=== PATIENT | male | born 1940 | race Caucasian/White ===

== ENCOUNTER 2023-04-12 09:33 | Inpatient (IN) | payer MEDICARE, OTHER ==
[~2023-04-12] VITALS: Ht 180.3 cm; Wt 63.5 kg
[2023-04-12] MEDS ORDERED: IV NORMAL SALINE 500 ML BAG IV ONE (10:15)
[2023-04-12 10:21] LABS: BASOPHILS # (AUTO) 0.1 K/UL (0.0-0.2); BASOPHILS % (AUTO) 0.7 % (0.0-2.0); EOSINOPHILS % (AUTO) 0.3 % (0.0-7.0); HEMATOCRIT 22.6 % (36.7-47.1); LYMPHOCYTES # (AUTO) 1.2 K/uL (0.8-4.8); LYMPHOCYTES % (AUTO) 16.4 % (20.5-51.5); MEAN CORPUSCULAR HGB CONC 32 g/dL (32.5-36.3); MEAN CORPUSCULAR VOLUME 75.3 fL (73.0-96.2); MONOCYTES # (AUTO) 0.5 K/uL (0.1-1.30); MONOCYTES % (AUTO) 6.9 % (0.0-11.0); NEUTROPHILS # (AUTO) 5.7 K/uL (1.8-8.9); NEUTROPHILS % (AUTO) 75.7 % (38.5-71.5); PLATELET COUNT (AUTO) 400 K/uL (152-348); RED CELL DISTRIBUTION WIDTH 17.6 % (12.1-16.2); WHITE BLOOD COUNT (AUTO) 7.6 K/uL (3.6-10.2)
[2023-04-12] MEDS ORDERED: ALPR0.5T8 PO (10:23)
[2023-04-12] MEDS ORDERED: MIDO2.5T PO (10:23)
[2023-04-12] MEDS ORDERED: ROSU20TA32 MT (10:23)
[2023-04-12] MEDS ORDERED: CALC500T53 PO (10:23)
[2023-04-12] MEDS ORDERED: CLOP75TA33 PO (10:23)
[2023-04-12] MEDS ORDERED: VENL75TA74 PO (10:23)
[2023-04-12] MEDS ORDERED: DOCU250C14 PO (10:23)
[2023-04-12] MEDS ORDERED: METF-440 MT (10:23)
[2023-04-12] MEDS ORDERED: TRAZ150T75 PO (10:23)
[2023-04-12] MEDS ORDERED: ASPI-1420 PO (10:23)
[2023-04-12] MEDS ORDERED: FLUD0.1T PO (10:23)
[2023-04-12 10:33] LABS: DIFFERENTIAL COMMENT 1
[2023-04-12 10:35] LABS: CALCIUM 8.6 mg/dL (8.5-10.1); CARBON DIOXIDE 25 mmol/L (21-32); CHLORIDE 101 mmol/L (98-107); CREATININE 1.5 mg/dL (0.6-1.3); GLUCOSE 201 mg/dL (74-106); HEMOGLOBIN 7.2 g/dL (12.5-16.3); POTASSIUM 4.8 mmol/L (3.5-5.1); SODIUM SERUM 136 mmol/L (136-145); UREA NITROGEN, BLOOD 33 mg/dL (7-18)
[2023-04-12 10:40] LABS: IRON, SERUM 25 ug/dL (50-175)
[2023-04-12 10:42] LABS: ALBUMIN 3.7 g/dL (3.4-5.0); BILIRUBIN,DIRECT 0.1 mg/dL (0.0-0.2); BILIRUBIN,TOTAL 0.2 mg/dL (0.2-1.0); TOTAL PROTEIN, SERUM 7.4 g/dL (6.4-8.2)
[2023-04-12] MEDS ORDERED: REMEDY ESSENTIAL ZINC PASTE 113 GM TP PRN (11:45)
[2023-04-12] MEDS ORDERED: ACETAMINOPHEN 325 MG TABLET PO PRN (11:45)
[2023-04-12] MEDS ORDERED: ONDANSETRON 4 MG/2 ML VIAL IV PRN (11:45)
[2023-04-12] MEDS ORDERED: SOD FERRIC GLUC COMPLX/SUCROSE 125 MG in IV NORMAL SALINE 100 ML IV SCH (14:00)
[2023-04-12] MEDS ORDERED: VITAMIN D2 PO (15:42)
[2023-04-12] MEDS ORDERED: MIDODRINE HCL 5 MG TABLET ONE (17:16)
[2023-04-12] MEDS ORDERED: DOCUSATE SODIUM 100 MG CAPSULE PO ONE (17:16)
[2023-04-12] MEDS: DOCUSATE SODIUM 250 MG CAPSULE PO SCH (17:21)
[2023-04-12] MEDS: MIDODRINE HCL 2.5 MG TABLET PO SCH (17:21)
[2023-04-12] MEDS: CALCIUM CARBONATE 500 MG TABLET PO SCH (17:28)
[2023-04-12] MEDS ORDERED: METFORMIN HCL 500 MG TABLET ONE (17:56)
[2023-04-12] MEDS: METFORMIN HCL 500 MG TABLET PO SCH (17:58)
[2023-04-12] MEDS ORDERED: METFORMIN HCL 500 MG TABLET PO SCH (18:00)
[2023-04-12] MEDS ORDERED: Medication Not On Formulary EA (Trazodone Hcl (Desyrel) 1 TAB) PO SCH (18:00)
[2023-04-12] MEDS: TRAZODONE 100 MG TABLET PO SCH (21:06)
[2023-04-12] MEDS: ALPRAZOLAM 0.5 MG TABLET PO SCH (21:06)
[2023-04-12 22:00] VITALS: BP_SYST 15; BP_SYST 150; BP_DIAS 66; TEMP 98.3; O2SAT 99
[2023-04-12] MEDS: IV NS 1000 ML 1,000 ML IV PRN (22:32)
[2023-04-13] VITALS (8 sets, daily range): BP systolic 100–146; BP diastolic 46–68; TEMP 98.1–99.2; O2SAT 97–100
[2023-04-13 05:40] LABS: *BILIRUBIN,URIN NEGATIVE (NEGATIVE); *CLARITY,URINE CLEAR (CLEAR); *COLOR,URINE YELLOW (YELLOW); *KETONES,URINE NEGATIVE (NEGATIVE); *UROBILINOGEN,URINE 0.2 E.U./dl (NORMAL); LEUKOCYTE ESTERASE ,URINE NEGATIVE (NEGATIVE); NITRITE, URINE NEGATIVE (NEGATIVE); UGLUCOSE NEGATIVE (NEGATIVE)
[2023-04-13 05:41] LABS: *BLOOD, URINE NEGATIVE (NEGATIVE); *PROTEIN,URINE NEGATIVE (NEGATIVE); *URINE TOTAL PROTEIN RANDOM 37.4 mg/dL (<150/24HR)
[2023-04-13 07:41] LABS: BASOPHILS % (AUTO) 0.7 % (0.0-2.0); EOSINOPHILS % (AUTO) 0.4 % (0.0-7.0); LYMPHOCYTES # (AUTO) 1.1 K/uL (0.8-4.8); LYMPHOCYTES % (AUTO) 18.8 % (20.5-51.5); MEAN CORPUSCULAR HEMOGLOBIN 24.4 uug (23.8-33.4); MEAN CORPUSCULAR HGB CONC 33 g/dL (32.5-36.3); MEAN CORPUSCULAR VOLUME 74.2 fL (73.0-96.2); MONOCYTES # (AUTO) 0.5 K/uL (0.1-1.30); MONOCYTES % (AUTO) 8.3 % (0.0-11.0); NEUTROPHILS # (AUTO) 4.3 K/uL (1.8-8.9); NEUTROPHILS % (AUTO) 71.8 % (38.5-71.5); PLATELET COUNT (AUTO) 367 K/uL (152-348); RED BLOOD CELL COUNT(AUTO) 2.67 MIL/uL (4.06-5.63); RED CELL DISTRIBUTION WIDTH 17.4 % (12.1-16.2)
[2023-04-13 07:59] LABS: IRON, SERUM 197 ug/dL (50-175)
[2023-04-13] MEDS: PANTOPRAZOLE SODIUM 40 MG VIAL IV SCH (08:30)
[2023-04-13] MEDS: VENLAFAXINE XR 75 MG TAB.ER.24H PO SCH (08:31)
[2023-04-13] MEDS: CALCIUM CARBONATE 500 MG TABLET PO SCH ×2 (08:31→17:22)
[2023-04-13] MEDS: DOCUSATE SODIUM 250 MG CAPSULE PO SCH ×2 (08:31→17:22)
[2023-04-13] MEDS: METFORMIN HCL 500 MG TABLET PO SCH ×2 (08:32→17:21)
[2023-04-13] MEDS: MIDODRINE HCL 2.5 MG TABLET PO SCH ×2 (08:34→17:22)
[2023-04-13 08:38] LABS: ALANINE AMINOTRANSFERASE 18 U/L (16-63); ALBUMIN 3.3 g/dL (3.4-5.0); ALKALINE PHOSPHATASE 45 U/L (50-136); ASPARTATE AMINOTRANSFERASE 7 U/L (15-37); BILIRUBIN,TOTAL 0.2 mg/dL (0.2-1.0); CALCIUM 8.9 mg/dL (8.5-10.1); CARBON DIOXIDE 25 mmol/L (21-32); CHLORIDE 103 mmol/L (98-107); CREATINE KINASE, TOTAL 35 U/L (39-308); CREATININE 1.1 mg/dL (0.6-1.3); GLUCOSE 122 mg/dL (74-106); MAGNESIUM 1.8 mg/dL (1.8-2.4); PHOSPHOROUS 2.9 mg/dL (2.5-4.9); POTASSIUM 4.8 mmol/L (3.5-5.1); SODIUM SERUM 136 mmol/L (136-145); TOTAL PROTEIN, SERUM 6.3 g/dL (6.4-8.2); UREA NITROGEN, BLOOD 31 mg/dL (7-18)
[2023-04-13 08:47] LABS: DIFFERENTIAL COMMENT 1; HEMATOCRIT 19.8 % (36.7-47.1); HEMOGLOBIN 6.5 g/dL (12.5-16.3)
[2023-04-13] MEDS ORDERED: FLUDROCORTISONE ACETATE 0.1 MG TABLET PO SCH ×2 (09:00)
[2023-04-13 09:03] LABS: FERRITIN 37 ng/mL (26-388)
[2023-04-13] MEDS ORDERED: CYANOCOBALAMIN 1000 MCG/ML VIAL IM ONE (09:30)
[2023-04-13] MEDS: IV NS 1000 ML 1,000 ML IV PRN (09:34)
[2023-04-13] MEDS: SOD FERRIC GLUC COMPLX/SUCROSE 125 MG in IV NORMAL SALINE 100 ML IV SCH (17:21)
[2023-04-13] MEDS: TRAZODONE 100 MG TABLET PO SCH (20:55)
[2023-04-13] MEDS: ALPRAZOLAM 0.5 MG TABLET PO SCH (20:55)
[2023-04-14] VITALS (9 sets, daily range): BP systolic 122–159; BP diastolic 58–79; TEMP 98–98.8; O2SAT 98–99
[2023-04-14] MEDS: IV NS 1000 ML 1,000 ML IV PRN (07:00)
[2023-04-14 07:03] LABS: BASOPHILS % (AUTO) 0.6 % (0.0-2.0); EOSINOPHILS % (AUTO) 0.5 % (0.0-7.0); HEMATOCRIT 21.4 % (36.7-47.1); LYMPHOCYTES % (AUTO) 15.5 % (20.5-51.5); MEAN CORPUSCULAR HEMOGLOBIN 24.1 uug (23.8-33.4); MEAN CORPUSCULAR HGB CONC 32 g/dL (32.5-36.3); MEAN CORPUSCULAR VOLUME 74.4 fL (73.0-96.2); MONOCYTES # (AUTO) 0.7 K/uL (0.1-1.30); MONOCYTES % (AUTO) 10.2 % (0.0-11.0); NEUTROPHILS # (AUTO) 4.9 K/uL (1.8-8.9); NEUTROPHILS % (AUTO) 73.2 % (38.5-71.5); PLATELET COUNT (AUTO) 336 K/uL (152-348); RED BLOOD CELL COUNT(AUTO) 2.87 MIL/uL (4.06-5.63); RED CELL DISTRIBUTION WIDTH 17.7 % (12.1-16.2); WHITE BLOOD COUNT (AUTO) 6.8 K/uL (3.6-10.2)
[2023-04-14 07:28] LABS: DIFFERENTIAL COMMENT 1
[2023-04-14 07:29] LABS: HEMOGLOBIN 6.9 g/dL (12.5-16.3)
[2023-04-14] MEDS ORDERED: MIRALAX 17 GM POWD.PACK PO PRN (08:45)
[2023-04-14] MEDS: DOCUSATE SODIUM 250 MG CAPSULE PO SCH ×2 (08:55→17:26)
[2023-04-14] MEDS: METFORMIN HCL 500 MG TABLET PO SCH ×2 (08:55→17:26)
[2023-04-14] MEDS: CALCIUM CARBONATE 500 MG TABLET PO SCH ×2 (08:56→17:26)
[2023-04-14] MEDS: VENLAFAXINE XR 75 MG TAB.ER.24H PO SCH (08:56)
[2023-04-14] MEDS: PANTOPRAZOLE SODIUM 40 MG VIAL IV SCH (08:56)
[2023-04-14] MEDS: MIDODRINE HCL 2.5 MG TABLET PO SCH ×2 (08:57→17:26)
[2023-04-14] MEDS ORDERED: DOCUSATE SODIUM 100 MG CAPSULE PO SCH (09:00)
[2023-04-14 09:46] LABS: LYMPHOCYTES % (MANUAL) 0 % (20-40); NEUTROPHILS % (MANUAL) 0 % (42-75)
[2023-04-14 12:07] LABS: A/G RATIO 1.1 (0.7-1.7); ALBUMIN 3.1 g/dL (2.9-4.4); ALPHA-1-GLOBULIN 0.1 g/dL (0.0-0.4); ALPHA-2-GLOBULIN 0.8 g/dL (0.4-1.0); BETA GLOBULIN 0.9 g/dL (0.7-1.3); GAMMA GLOBULIN 0.9 g/dL (0.4-1.8); GLOBULIN, TOTAL 2.8 g/dL (2.2-3.9); M-SPIKE 0.3 g/dL (Not Observed)
[2023-04-14 13:29] LABS: *OCCULT BLOOD STOOL NEGATIVE (NEGATIVE)
[2023-04-14] MEDS: SOD FERRIC GLUC COMPLX/SUCROSE 125 MG in IV NORMAL SALINE 100 ML IV SCH (13:43)
[2023-04-14] MEDS: TRAZODONE 100 MG TABLET PO SCH (20:38)
[2023-04-14] MEDS: ALPRAZOLAM 0.25 MG TABLET PO SCH (20:38)
[2023-04-15 04:32] VITALS: BP 131/65; TEMP 98.1; O2SAT 99
[2023-04-15 06:09] LABS: BASOPHILS # (AUTO) 0.1 K/UL (0.0-0.2); BASOPHILS % (AUTO) 0.7 % (0.0-2.0); EOSINOPHILS # (AUTO) 0.1 K/uL (0.0-0.7); EOSINOPHILS % (AUTO) 0.8 % (0.0-7.0); HEMATOCRIT 24.4 % (36.7-47.1); HEMOGLOBIN 8.3 g/dL (12.5-16.3); LYMPHOCYTES # (AUTO) 1.1 K/uL (0.8-4.8); LYMPHOCYTES % (AUTO) 16.4 % (20.5-51.5); MEAN CORPUSCULAR HEMOGLOBIN 25.9 uug (23.8-33.4); MEAN CORPUSCULAR HGB CONC 34 g/dL (32.5-36.3); MEAN CORPUSCULAR VOLUME 75.9 fL (73.0-96.2); MONOCYTES # (AUTO) 0.8 K/uL (0.1-1.30); MONOCYTES % (AUTO) 11.2 % (0.0-11.0); NEUTROPHILS # (AUTO) 4.9 K/uL (1.8-8.9); NEUTROPHILS % (AUTO) 70.9 % (38.5-71.5); PLATELET COUNT (AUTO) 332 K/uL (152-348); RED BLOOD CELL COUNT(AUTO) 3.22 MIL/uL (4.06-5.63); RED CELL DISTRIBUTION WIDTH 18.2 % (12.1-16.2)
[2023-04-15 06:45] LABS: CALCIUM 9.1 mg/dL (8.5-10.1); CARBON DIOXIDE 27 mmol/L (21-32); CHLORIDE 102 mmol/L (98-107); CREATININE 1.1 mg/dL (0.6-1.3); GLUCOSE 124 mg/dL (74-106); MAGNESIUM 1.8 mg/dL (1.8-2.4); PHOSPHOROUS 2.6 mg/dL (2.5-4.9); POTASSIUM 4.6 mmol/L (3.5-5.1); SODIUM SERUM 135 mmol/L (136-145); UREA NITROGEN, BLOOD 24 mg/dL (7-18)
[2023-04-15 07:16] LABS: DIFFERENTIAL COMMENT 1
[2023-04-15 08:00] VITALS: BP 127/61; TEMP 98.3; O2SAT 97
[2023-04-15] MEDS: CALCIUM CARBONATE 500 MG TABLET PO SCH ×2 (08:21→17:13)
[2023-04-15] MEDS: DOCUSATE SODIUM 250 MG CAPSULE PO SCH ×2 (08:21→17:13)
[2023-04-15] MEDS: METFORMIN HCL 500 MG TABLET PO SCH ×2 (08:21→17:13)
[2023-04-15] MEDS: ALPRAZOLAM 0.25 MG TABLET PO SCH ×3 (08:22→20:49)
[2023-04-15] MEDS: VENLAFAXINE XR 75 MG TAB.ER.24H PO SCH (08:22)
[2023-04-15] MEDS: MIDODRINE HCL 2.5 MG TABLET PO SCH ×2 (08:24→17:28)
[2023-04-15] MEDS: PANTOPRAZOLE SODIUM 40 MG VIAL IV SCH (08:25)
[2023-04-15] MEDS ORDERED: GOLYTELY 4000 ML BOTTLE PO ONE (09:00)
[2023-04-15 11:39] VITALS: BP 119/52; TEMP 98.9; O2SAT 97
[2023-04-15 16:05] VITALS: BP 143/67; TEMP 99; O2SAT 99
[2023-04-15] MEDS: PROTEIN SUPPLEMENT (PROSTAT) 30 ML LIQUID PO SCH (17:29)
[2023-04-15 20:20] VITALS: BP 165/75; TEMP 98.3; O2SAT 100
[2023-04-15] MEDS: TRAZODONE 100 MG TABLET PO SCH (20:49)
[2023-04-15] MEDS: IV NS 1000 ML 1,000 ML IV PRN (23:30)
[2023-04-16 04:10] VITALS: BP 150/63; TEMP 97; O2SAT 99
[2023-04-16 06:54] LABS: BASOPHILS % (AUTO) 0.7 % (0.0-2.0); EOSINOPHILS # (AUTO) 0.1 K/uL (0.0-0.7); EOSINOPHILS % (AUTO) 0.9 % (0.0-7.0); HEMATOCRIT 25.1 % (36.7-47.1); HEMOGLOBIN 8.2 g/dL (12.5-16.3); LYMPHOCYTES # (AUTO) 0.9 K/uL (0.8-4.8); LYMPHOCYTES % (AUTO) 13.4 % (20.5-51.5); MEAN CORPUSCULAR HGB CONC 33 g/dL (32.5-36.3); MEAN CORPUSCULAR VOLUME 76.7 fL (73.0-96.2); MONOCYTES # (AUTO) 0.7 K/uL (0.1-1.30); MONOCYTES % (AUTO) 10.9 % (0.0-11.0); NEUTROPHILS # (AUTO) 4.8 K/uL (1.8-8.9); NEUTROPHILS % (AUTO) 74.1 % (38.5-71.5); PLATELET COUNT (AUTO) 378 K/uL (152-348); RED BLOOD CELL COUNT(AUTO) 3.27 MIL/uL (4.06-5.63); RED CELL DISTRIBUTION WIDTH 18.5 % (12.1-16.2); WHITE BLOOD COUNT (AUTO) 6.5 K/uL (3.6-10.2)
[2023-04-16 07:03] LABS: DIFFERENTIAL COMMENT 1
[2023-04-16 07:14] LABS: ALANINE AMINOTRANSFERASE 15 U/L (16-63); ALBUMIN 3.2 g/dL (3.4-5.0); ALKALINE PHOSPHATASE 42 U/L (50-136); BILIRUBIN,TOTAL 0.2 mg/dL (0.2-1.0); CALCIUM 8.6 mg/dL (8.5-10.1); CARBON DIOXIDE 28 mmol/L (21-32); CHLORIDE 101 mmol/L (98-107); GLUCOSE 139 mg/dL (74-106); MAGNESIUM 1.8 mg/dL (1.8-2.4); PHOSPHOROUS 2.5 mg/dL (2.5-4.9); POTASSIUM 3.6 mmol/L (3.5-5.1); SODIUM SERUM 137 mmol/L (136-145); TOTAL PROTEIN, SERUM 6.3 g/dL (6.4-8.2); UREA NITROGEN, BLOOD 16 mg/dL (7-18)
[2023-04-16] MEDS ORDERED: LIDOCAINE-MPF 2% 5 ML VIAL ONE (07:27)
[2023-04-16] MEDS ORDERED: ETOMIDATE 20 MG/10 ML VIAL ONE ×2 (07:27)
[2023-04-16] MEDS ORDERED: PROPOFOL 200 MG/20 ML BOTTLE ONE (07:27)
[2023-04-16 07:41] LABS: ASPARTATE AMINOTRANSFERASE 7 U/L (15-37)
[2023-04-16] MEDS: VENLAFAXINE XR 75 MG TAB.ER.24H PO SCH (09:16)
[2023-04-16] MEDS: DOCUSATE SODIUM 250 MG CAPSULE PO SCH (09:16)
[2023-04-16] MEDS: ALPRAZOLAM 0.25 MG TABLET PO SCH ×2 (09:16→12:53)
[2023-04-16] MEDS: PANTOPRAZOLE SODIUM 40 MG VIAL IV SCH (09:16)
[2023-04-16] MEDS: PROTEIN SUPPLEMENT (PROSTAT) 30 ML LIQUID PO SCH (09:18)
[2023-04-16] MEDS: CALCIUM CARBONATE 500 MG TABLET PO SCH (09:20)
[2023-04-16] MEDS: METFORMIN HCL 500 MG TABLET PO SCH (09:24)
[2023-04-16 09:30] VITALS: BP 150/69; O2SAT 99
[2023-04-16] MEDS ORDERED: IV NS 1000 ML 1,000 ML IV PRN (10:30)
[2023-04-16 11:42] VITALS: BP 123/60; TEMP 98.6; O2SAT 98
[2023-04-17] MEDS ORDERED: PANTOPRAZOLE SODIUM 40 MG TABLET.DR PO SCH (07:00)
== END 2023-04-16 16:25 | disposition home or self-care (01) | DRG 377 ==
LOC: ER 09:33 → TRANSITION 11:42 → TELE3 19:59 → MEDSURG3 20:30 → MED 04-13 20:40
PROVIDERS: ADMIT Internal Medicine; ATTEND Internal Medicine
PROC: 30233N1 Transfusion of Nonautologous Red Blood Cells into Peripheral Vein, Percutaneous Approach (ICD-10-PCS; principal; 2023-04-13)
PROC: 0DB58ZX Excision of Esophagus, Via Natural or Artificial Opening Endoscopic, Diagnostic (ICD-10-PCS; 2023-04-16)
PROC: 0DB78ZX Excision of Stomach, Pylorus, Via Natural or Artificial Opening Endoscopic, Diagnostic (ICD-10-PCS; 2023-04-16)
PROC: 0DBC8ZX Excision of Ileocecal Valve, Via Natural or Artificial Opening Endoscopic, Diagnostic (ICD-10-PCS; 2023-04-16)
DX: K57.31 Diverticulosis of large intestine without perforation or abscess with bleeding (principal); K21.01 Gastro-esophageal reflux disease with esophagitis, with bleeding; N17.0 Acute kidney failure with tubular necrosis; C18.0 Malignant neoplasm of cecum; Z68.1 Body mass index [BMI] 19.9 or less, adult; K44.9 Diaphragmatic hernia without obstruction or gangrene; I49.9 Cardiac arrhythmia, unspecified; Z95.0 Presence of cardiac pacemaker; E11.65 Type 2 diabetes mellitus with hyperglycemia; Z79.02 Long term (current) use of antithrombotics/antiplatelets; N28.1 Cyst of kidney, acquired; Z79.82 Long term (current) use of aspirin; I25.10 Atherosclerotic heart disease of native coronary artery without angina pectoris; Z95.5 Presence of coronary angioplasty implant and graft; Z79.84 Long term (current) use of oral hypoglycemic drugs; Z79.899 Other long term (current) drug therapy; Z86.73 Personal history of transient ischemic attack (TIA), and cerebral infarction without residual deficits; I95.1 Orthostatic hypotension; R53.83 Other fatigue; I65.29 Occlusion and stenosis of unspecified carotid artery; I10 Essential (primary) hypertension; D50.0 Iron deficiency anemia secondary to blood loss (chronic); F41.9 Anxiety disorder, unspecified; F32.A Depression, unspecified; R63.4 Abnormal weight loss; I70.0 Atherosclerosis of aorta; K22.70 Barrett's esophagus without dysplasia; Z87.891 Personal history of nicotine dependence; E78.5 Hyperlipidemia, unspecified; K64.8 Other hemorrhoids; K64.4 Residual hemorrhoidal skin tags
CPT/HCPCS: 36415; 70030-TC; 71045; 76770; 83550; 83735; 83970; 84100; 84155; 84165; 84300; 85025; 85730; 86850; 86900; 86901; 86920; 93005; C9113; G0378; J2916; J3420; J3490; J7040; P9016